=== PATIENT | male | born 1960 | race Caucasian/White ===

== ENCOUNTER 2019-11-21 13:37 | Outpatient (CLI) | payer BC ==
--- NOTE | 2019-11-21 15:47 | MRI ---
LEFT SHOULDER MRI WITHOUT IV CONTRAST: HISTORY: Chronic pain left shoulder without acute injury. FINDINGS: Multiplanar, multisequence MRI examination of the shoulder is performed. There are very severe gleno humeral joint arthropathy changes with marked flattening of the glenoid as well as severe deformity a nd flattening of the humeral head with extensive hypertrophic osteophytosis. There is evidence for a bnormal joint effusion with numerous intraarticular bodies as well as a focal area of intraarticular mass approximately 1.9 cm in size which is partially fatty, evidence for a small focal area of lipo ma arborescence. There is fairly marked muscle volume loss of the supraspinatus and moderate muscle volume loss of the infraspinatus muscles. There is some thinning of the supraspinatus and infraspina tus tendons at the level of the magic angle. There appears to be a concealed interstitial tear of th e supraspinatus tendon at the insertion. The infraspinatus tendon demonstrates fairly extensive foca l tendinopathy and some undersurface interstitial tearing but without evidence for complete full-thic kness or retracted tear. Marked thickening and altered signal of the subscapularis tendon, evidence for extensive tendinopathy and probable associated interstitial tearing. Evidence for biceps tendino basilia. AC joint arthrosis with minimal fluid and fat stranding in the subacromial subdeltoid bursa w ith mild downsloping of the anterior acromion. No acute abnormal marrow signal. IMPRESSION: Very severe glenohumeral joint arthropathy changes with extensive flattening and deformity of the hum eral head and glenoid with extensive hypertrophic osteophytosis as well as fairly extensive intraarti cular debris including small bodies and evidence for a focal area of lipoma arborescence. No evidenc e for a complete full-thickness or retracted tendon tear. Evidence for tendinopathy. Partial thickn ess interstitial tearing including the supraspinatus and infraspinatus tendons as well as the subscap ularis tendon. Moderate to severe muscle volume loss of the supraspinatus muscle and moderate muscle volume loss of the infraspinatus muscle. POS: RRE
== END 2019-11-21 13:38 | disposition home or self-care (01) ==
LOC: MRI 13:37
PROVIDERS: ATTEND Orthopaedic Surgery Sports Medicine
DX: G56.00 Carpal tunnel syndrome, unspecified upper limb (principal); M17.12 Unilateral primary osteoarthritis, left knee

== ENCOUNTER 2021-03-17 16:21 | Outpatient (CLI) | payer BC | END 2021-03-17 16:22 | disposition home or self-care (01) | LOC: LABBT 16:21 | PROVIDERS: ATTEND Internal Medicine Cardiovascular Disease | DX: Z01.812 Encounter for preprocedural laboratory examination (principal); Q24.9 Congenital malformation of heart, unspecified; Z20.822 Contact with and (suspected) exposure to COVID-19 | CPT/HCPCS: 80053; 85025; U0003; U0005 ==

== ENCOUNTER 2021-03-22 06:06 | Inpatient (IN) | payer BC ==
[2021-03-19 11:46] VITALS: BMI 37.8
[2021-03-22] MEDS ORDERED: Heparin 10,000 UNITS/ 10 ML VIAL ONE (06:33)
[2021-03-22] MEDS ORDERED: Lidocaine 1% (PF) 30 ML VIAL ONE (06:34)
[2021-03-22] MEDS ORDERED: Fentanyl 100 MCG/2 ML VIAL ONE (07:11)
[2021-03-22] MEDS ORDERED: Midazolam HCl 2 mg/2 ml Vial ONE (07:11)
[2021-03-22] MEDS ORDERED: Heparin 25,000 units/D5W 500 ML ONE (07:46)
[2021-03-22] MEDS ORDERED: Nitroglycerin 0.4 MG TAB (25 Tab Bottle) SL PRN (08:04)
[2021-03-22] MEDS ORDERED: Sodium Chloride 0.9% 200 ML IV PRN (08:04)
[2021-03-22] MEDS ORDERED: Acetaminophen/Codeine 30-300mg Tablet PO PRN ×2 (08:04)
[2021-03-22] MEDS ORDERED: Heparin 10,000 UNITS/ 10 ML VIAL SLOW IVP SCH (08:15)
[2021-03-22] MEDS ORDERED: Heparin 10,000 UNITS/1 ML VIAL SLOW IVP SCH (08:15)
[2021-03-22] MEDS ORDERED: Sodium Chloride 0.9% 1,000 ML IV SCH (08:15)
[2021-03-22] MEDS ORDERED: Nitroglycerin 2% Ointment 1 INCH/1 GM Packet ONE (08:23)
[2021-03-22] MEDS ORDERED: Iopamidol 370 76% 50 ML VIAL FS ONE (08:50)
[2021-03-22] MEDS ORDERED: Iopamidol 370 76% 100 ML VIAL ONE (08:50)
[2021-03-22] MEDS ORDERED: Nitroglycerin 2% Ointment 1 INCH/1 GM Packet TOP SCH (09:00)
[2021-03-22] MEDS ORDERED: Albumin 5% 500 ML ONE (11:34)
[2021-03-22] MEDS ORDERED: Heparin 10,000 UNITS/1 ML VIAL 30,000 UNITS in Sodium Chloride 0.9% 1,000 ML FS SCH (11:45)
[2021-03-22] MEDS ORDERED: Heparin 25,000 units/D5W 500 ML IV SCH (12:00)
[2021-03-22] MEDS ORDERED: Fentanyl 250 MCG/5 ML VIAL ONE (12:02)
[2021-03-22] MEDS ORDERED: Midazolam HCl 5 mg/5 ml Vial ONE (12:02)
[2021-03-22] MEDS ORDERED: Dexmedetomidine 200 MCG/2 ML VIAL ONE (12:03)
[2021-03-22] MEDS ORDERED: Sodium Chloride 0.9% 20 ML ONE (12:49)
[2021-03-22] MEDS ORDERED: Succinylcholine 200 MG/10 ml SYRINGE FS ONE (13:21)
[2021-03-22] MEDS ORDERED: Potassium Chloride 60 MEQ/30 ML VIAL ONE (13:21)
[2021-03-22] MEDS ORDERED: Magnesium Sulfate 1 GM/2 ML VIAL ONE (13:21)
[2021-03-22] MEDS ORDERED: Papaverine 60 MG/2 ML VIAL ONE (13:21)
[2021-03-22] MEDS ORDERED: PROPOFOL 200 MG/20 ML VIAL ONE (13:21)
[2021-03-22] MEDS ORDERED: Lidocaine 2% PF 100 mg/5 ml Syringe ONE (13:21)
[2021-03-22] MEDS ORDERED: Calcium Chloride 1 GM/10 ML Abboject SYRINGE ONE (13:21)
[2021-03-22] MEDS ORDERED: Sodium Bicarb 50 MEQ/50 ML Abboject 8.4% SYRINGE ONE (13:21)
[2021-03-22] MEDS ORDERED: Heparin 30,000 units/30 ml VIAL ONE (13:21)
[2021-03-22] MEDS ORDERED: Protamine Sulfate 250 MG/25 ML VIAL ONE (13:21)
[2021-03-22] MEDS ORDERED: Norepinephrine 4 MG/4 ML VIAL ONE (13:21)
[2021-03-22] MEDS ORDERED: Cardioplegic Soln 1,000 ML BAG ONE (13:21)
[2021-03-22] MEDS ORDERED: Aminocaproic Acid 5 GM/20 ML VIAL ONE (13:21)
[2021-03-22] MEDS ORDERED: Nitroglycerin 50 MG/250 ML BOT ONE (13:21)
[2021-03-22] MEDS ORDERED: Vecuronium 10 MG VIAL ONE (13:21)
[2021-03-22] MEDS ORDERED: Glycopyrrolate 0.2 MG/ML 5 ML SYRINGE ONE (13:21)
[2021-03-22] MEDS ORDERED: Heparin 5,000 UNITS/ML VIAL ONE (13:21)
[2021-03-22] MEDS ORDERED: Mannitol 12.5 GM/50 ML ONE (13:21)
[2021-03-22] MEDS ORDERED: Ondansetron PF 4 MG/2 ML Vial ONE (13:21)
[2021-03-22] MEDS ORDERED: Lidocaine 1% PF 5 ML VIAL ONE (13:21)
[2021-03-22] MEDS ORDERED: Thrombin 5000 UNITS/5 ML VIAL ONE (13:21)
[2021-03-22] MEDS ORDERED: Post-Op Insulin Drip Protocol IVPB ONE (17:59)
[2021-03-22] MEDS ORDERED: Norepinephrine 8 MG/0.9% NS 250 ML IVPB PRN (17:59)
[2021-03-22] MEDS ORDERED: Fentanyl 100 MCG/2 ML VIAL SLOW IVP PRN (17:59)
[2021-03-22] MEDS ORDERED: hydrALAZINE 20 MG/ML VIAL SLOW IVP PRN (17:59)
[2021-03-22] MEDS ORDERED: Morphine 2 MG/ML VIAL SLOW IVP PRN (17:59)
[2021-03-22] MEDS ORDERED: HYDROcodone/Acetaminophen 5/325 mg Tablet PO PRN (17:59)
[2021-03-22] MEDS ORDERED: Mag-Al 1200 mg/1200 mg/30 ML UDCUP PO PRN (17:59)
[2021-03-22] MEDS ORDERED: DOPamine 400 MG/D5W 250 ML 250 ML IVPB PRN (17:59)
[2021-03-22] MEDS ORDERED: Bisacodyl 10 MG SUPP PR PRN (17:59)
[2021-03-22] MEDS ORDERED: Promethazine HCl 25 MG/ML VIAL IM PRN (17:59)
[2021-03-22] MEDS ORDERED: Acetaminophen 325 MG TAB PO PRN (17:59)
[2021-03-22] MEDS ORDERED: niCARdipine 25 MG in Sodium Chloride 0.9% 250 ML 240 ML IVPB PRN (17:59)
[2021-03-22] MEDS ORDERED: Bisacodyl 5 MG TAB PO PRN (17:59)
[2021-03-22] MEDS ORDERED: Potassium Chloride 20 MEQ/100 ML PREMIX BAG IVPB PRN (17:59)
[2021-03-22] MEDS ORDERED: Ondansetron PF 4 MG/2 ML Vial IVP PRN (17:59)
[2021-03-22] MEDS ORDERED: Nitroglycerin 50 MG/250 ML BOT 250 ML IVPB PRN (17:59)
[2021-03-22] MEDS ORDERED: Guaifenesin DM 100-10/5 ML UDCUP PO PRN (17:59)
[2021-03-22] MEDS ORDERED: Hetastarch 6% 500 ML 500 ML IVPB PRN (17:59)
[2021-03-22 18:08] LABS: #Basophils 0.1 thou/uL (0.0-0.2); #Eosinphils 0.2 thou/uL (0.0-0.7); #Lymphocytes 1.7 thou/uL (1.20-3.40); #Monocytes 1.4 thou/uL (0.11-0.59); #Neutrophils 15.3 thou/uL (1.40-6.50); %Basophils 0.5 % (0.0-1.0); %Eosinophils 0.8 % (0.0-10.0); %Lymphocytes 9.1 % (21.0-51.0); %Monocytes 7.7 % (0.0-10.0); Hemoglobin 12.4 g/dL (14.0-18.0); Mean Corpuscular HGB CONC 34.8 g/dL (32.0-36.0); Mean Corpuscular Volume 97.6 fL (78.0-98.0); Platelet Count 232 thou/uL (130-400); RBC Distribution Width 11.2 % (11.5-14.5); Red Blood Cell (RBC) Count 3.64 mill/uL (4.70-6.10); White Blood Cell (WBC) Count 18.7 thou/uL (4.8-10.8)
[2021-03-22 18:20] LABS: INR-International Normal Ratio 1.3; Prothrombin Time 15.7 sec (12.0-14.7)
[2021-03-22 18:21] LABS: PTT 29.3 sec (22.9-36.1)
[2021-03-22] MEDS: Fentanyl 100 MCG/2 ML VIAL SLOW IVP PRN ×2 (18:35→20:45)
[2021-03-22 18:38] LABS: Anion Gap 13 mmol/L (10-20); BUN (Urea Nitrogen) 15 mg/dL (8.4-25.7); Calc. Creatinine Clearance 146 mL/min (70-130); Calcium 8.6 mg/dL (7.8-10.44); Carbon Dioxide 22 mmol/L (23-31); Chloride 104 mmol/L (98-107); Glucose 144 mg/dL (80-115); Potassium 4.7 mmol/L (3.5-5.1); Sodium 134 mmol/L (136-145)
[2021-03-22] MEDS ORDERED: Lantus 1000 UNITS/10 ML VIAL SC PRN (19:15)
[2021-03-22] MEDS ORDERED: Insulin Regular 300 UNITS/3 ML VIAL SC PRN (19:15)
[2021-03-22] MEDS ORDERED: Dextrose 5% in Water 1,000 ML IV PRN (19:15)
[2021-03-22] MEDS ORDERED: Dextrose 50% Abboject 50 ML SYRINGE SLOW IVP PRN (19:15)
[2021-03-22] MEDS ORDERED: HUMULIN R 100 UNITS in Sodium Chloride 0.9% 100 ML IVPB SCH (19:15)
[2021-03-22] MEDS: Ketorolac Tromethamine 30 MG/ML VIAL IVP SCH ×2 (19:51→23:19)
[2021-03-22] MEDS: Famotidine/PF 20 mg/2ml Vial SLOW IVP SCH (19:52)
[2021-03-22] MEDS: CEFAZOLIN 2 GM in Premix Bag 1 BAG IVPB SCH (19:52)
[2021-03-22] MEDS: Lactated Ringer's 1,000 ML IV SCH (20:33)
[2021-03-22] MEDS: HYDROcodone/Acetaminophen 5/325 mg Tablet PO PRN (20:45)
[2021-03-22] MEDS ORDERED: Atorvastatin Calcium 20 MG TAB PO SCH (21:00)
[2021-03-22 22:22] LABS: Hemoglobin 12.6 g/dL (14.0-18.0)
[2021-03-22 22:35] LABS: Potassium 4.5 mmol/L (3.5-5.1)
[2021-03-23] MEDS: HYDROcodone/Acetaminophen 5/325 mg Tablet PO PRN ×5 (01:04→20:39)
[2021-03-23] MEDS: Fentanyl 100 MCG/2 ML VIAL SLOW IVP PRN ×2 (01:05→04:57)
[2021-03-23] MEDS: CEFAZOLIN 2 GM in Premix Bag 1 BAG IVPB SCH ×2 (01:33→07:57)
[2021-03-23] MEDS: Lactated Ringer's 1,000 ML IV SCH (03:51)
[2021-03-23 04:39] LABS: #Lymphocytes 0.8 thou/uL (1.20-3.40); #Neutrophils 9.4 thou/uL (1.40-6.50); %Basophils 0.2 % (0.0-1.0); %Eosinophils 0.2 % (0.0-10.0); %Lymphocytes 6.8 % (21.0-51.0); %Neutrophils 83.8 % (42.0-75.0); Hemoglobin 11.2 g/dL (14.0-18.0); Mean Corpuscular HGB CONC 35.7 g/dL (32.0-36.0); Mean Corpuscular Hemoglobin 35.2 pg (27.0-31.0); Mean Corpuscular Volume 98.5 fL (78.0-98.0); Mean Platelet Volume 7.2 fL (7.4-10.4); Platelet Count 183 thou/uL (130-400); RBC Distribution Width 11.1 % (11.5-14.5); Red Blood Cell (RBC) Count 3.18 mill/uL (4.70-6.10); White Blood Cell (WBC) Count 11.2 thou/uL (4.8-10.8)
[2021-03-23 04:57] LABS: Anion Gap 13 mmol/L (10-20); BUN (Urea Nitrogen) 16 mg/dL (8.4-25.7); Calc. Creatinine Clearance 126 mL/min (70-130); Calcium 8.2 mg/dL (7.8-10.44); Carbon Dioxide 23 mmol/L (23-31); Chloride 101 mmol/L (98-107); Glucose 120 mg/dL (80-115); Potassium 4.3 mmol/L (3.5-5.1); Sodium 133 mmol/L (136-145)
[2021-03-23] MEDS: Ketorolac Tromethamine 30 MG/ML VIAL IVP SCH ×3 (05:49→17:47)
[2021-03-23] MEDS: Polyethylene Glycol 3350 17 GM Packet PO SCH (07:55)
[2021-03-23] MEDS: Famotidine/PF 20 mg/2ml Vial SLOW IVP SCH (07:56)
[2021-03-23] MEDS: Aspirin 325 MG TAB PO SCH (07:56)
[2021-03-23] MEDS ORDERED: Hydrochlorothiazide 25 MG TAB PO SCH (09:00)
[2021-03-23] MEDS ORDERED: Lisinopril 20 MG TAB PO SCH (09:00)
[2021-03-23] MEDS ORDERED: Zolpidem Tartrate 5 MG TAB PO PRN (12:16)
[2021-03-23] MEDS ORDERED: diphenhydrAMINE 25 MG CAP PO PRN (12:16)
[2021-03-23] MEDS ORDERED: Mineral Oil ENEMA PR PRN (12:16)
[2021-03-23] MEDS ORDERED: Nitroglycerin 0.4 MG TAB (25 Tab Bottle) SL PRN (12:16)
[2021-03-23] MEDS: guaiFENesin ER 600 MG TAB PO SCH (20:37)
[2021-03-23] MEDS: Famotidine 20 MG TAB PO SCH (20:38)
[2021-03-23] MEDS: Atorvastatin Calcium 40 MG TAB PO SCH (20:38)
[2021-03-23] MEDS: Enoxaparin Sodium 40 MG/0.4 ML SYRINGE SC SCH (20:38)
[2021-03-23] MEDS ORDERED: Atorvastatin Calcium 40 MG TAB PO SCH (21:00)
[2021-03-24] MEDS: Ketorolac Tromethamine 30 MG/ML VIAL IVP SCH ×4 (00:34→17:52)
[2021-03-24] MEDS: Famotidine 20 MG TAB PO SCH ×2 (09:08→21:08)
[2021-03-24] MEDS: Potassium Chloride 10 MEQ TAB PO SCH (09:08)
[2021-03-24] MEDS: Aspirin 325 MG TAB PO SCH (09:08)
[2021-03-24] MEDS: guaiFENesin ER 600 MG TAB PO SCH ×2 (09:08→21:08)
[2021-03-24] MEDS: Furosemide 40 MG TAB PO SCH (09:08)
[2021-03-24] MEDS: Polyethylene Glycol 3350 17 GM Packet PO SCH (09:09)
[2021-03-24] MEDS: Carvedilol 3.125 MG TAB PO SCH (17:53)
[2021-03-24] MEDS: Enoxaparin Sodium 40 MG/0.4 ML SYRINGE SC SCH (21:07)
[2021-03-24] MEDS: Atorvastatin Calcium 40 MG TAB PO SCH (21:08)
[2021-03-24] MEDS: HYDROcodone/Acetaminophen 5/325 mg Tablet PO PRN (21:08)
[2021-03-25] MEDS: Ketorolac Tromethamine 30 MG/ML VIAL IVP SCH ×2 (01:13→05:22)
[2021-03-25] MEDS: Furosemide 40 MG TAB PO SCH (09:18)
[2021-03-25] MEDS: Famotidine 20 MG TAB PO SCH ×2 (09:18→20:53)
[2021-03-25] MEDS: Carvedilol 3.125 MG TAB PO SCH ×2 (09:18→16:40)
[2021-03-25] MEDS: Potassium Chloride 10 MEQ TAB PO SCH (09:18)
[2021-03-25] MEDS: guaiFENesin ER 600 MG TAB PO SCH ×2 (09:18→20:53)
[2021-03-25] MEDS: Polyethylene Glycol 3350 17 GM Packet PO SCH (09:19)
[2021-03-25] MEDS: Aspirin 325 MG TAB PO SCH (11:56)
[2021-03-25] MEDS ORDERED: Lisinopril 10 MG TAB PO SCH (16:15)
[2021-03-25] MEDS: Enoxaparin Sodium 40 MG/0.4 ML SYRINGE SC SCH (20:53)
[2021-03-25] MEDS: Atorvastatin Calcium 40 MG TAB PO SCH (20:53)
[2021-03-26] MEDS ORDERED: Lisinopril 10 MG TAB PO SCH ×2 (09:00)
[2021-03-26] MEDS ORDERED: Lisinopril 20 MG TAB PO SCH (09:00)
[2021-03-26] MEDS: Potassium Chloride 10 MEQ TAB PO SCH (09:54)
[2021-03-26] MEDS: Carvedilol 3.125 MG TAB PO SCH (09:54)
[2021-03-26] MEDS: Aspirin 325 MG TAB PO SCH (09:54)
[2021-03-26] MEDS: Furosemide 40 MG TAB PO SCH (09:55)
[2021-03-26] MEDS: HYDROcodone/Acetaminophen 5/325 mg Tablet PO PRN ×2 (09:55→20:14)
[2021-03-26] MEDS: Famotidine 20 MG TAB PO SCH ×2 (09:56→20:10)
[2021-03-26] MEDS: Polyethylene Glycol 3350 17 GM Packet PO SCH (09:56)
[2021-03-26] MEDS: guaiFENesin ER 600 MG TAB PO SCH ×2 (10:08→20:11)
[2021-03-26] MEDS ORDERED: Carvedilol 3.125 MG TAB PO SCH (12:45)
[2021-03-26] MEDS ORDERED: Carvedilol 6.25 MG TAB PO SCH (17:00)
[2021-03-26] MEDS: Atorvastatin Calcium 40 MG TAB PO SCH (20:10)
[2021-03-26] MEDS: Enoxaparin Sodium 40 MG/0.4 ML SYRINGE SC SCH (20:11)
[2021-03-27 05:40] VITALS: BP 164/77; TEMP 98.9
[2021-03-27] MEDS: HYDROcodone/Acetaminophen 5/325 mg Tablet PO PRN (05:42)
== END 2021-03-27 06:55 | disposition home or self-care (01) | DRG 234 ==
LOC: SDC 06:06 → CCU 08:04 → 2NO 03-23 13:51
PROVIDERS: ADMIT Internal Medicine Cardiovascular Disease; ATTEND Internal Medicine Cardiovascular Disease
PROC: 4A023N7 Measurement of Cardiac Sampling and Pressure, Left Heart, Percutaneous Approach (ICD-10-PCS; principal; 2021-03-22)
PROC: 02100Z9 Bypass Coronary Artery, One Artery from Left Internal Mammary, Open Approach (ICD-10-PCS; 2021-03-22)
PROC: 0211093 Bypass Coronary Artery, Two Arteries from Coronary Artery with Autologous Venous Tissue, Open Approach (ICD-10-PCS; 2021-03-22)
PROC: 06BP4ZZ Excision of Right Saphenous Vein, Percutaneous Endoscopic Approach (ICD-10-PCS; 2021-03-22)
PROC: 04HL33Z Insertion of Infusion Device into Left Femoral Artery, Percutaneous Approach (ICD-10-PCS; 2021-03-22)
PROC: B2111ZZ Fluoroscopy of Multiple Coronary Arteries using Low Osmolar Contrast (ICD-10-PCS; 2021-03-22)
PROC: B2151ZZ Fluoroscopy of Left Heart using Low Osmolar Contrast (ICD-10-PCS; 2021-03-22)
PROC: 5A1221Z Performance of Cardiac Output, Continuous (ICD-10-PCS; 2021-03-22)
DX: I25.10 Atherosclerotic heart disease of native coronary artery without angina pectoris (principal); R94.39 Abnormal result of other cardiovascular function study; Z20.822 Contact with and (suspected) exposure to COVID-19; I10 Essential (primary) hypertension; E78.00 Pure hypercholesterolemia, unspecified; Z87.891 Personal history of nicotine dependence; Z79.899 Other long term (current) drug therapy; Z79.82 Long term (current) use of aspirin
CPT/HCPCS: 36415; 36416; 36430; 71045; 80048; 82947; 85025; 85347; 85610; 85730; 86850; 86900; 86901; 93005; 93010; 93458; 93798; 94660; 99152; 99153; J0690; J1644; J1650; J1885; J2001; J2150; J2250; J2405; J2440; J2704; J2720; J3010; J3370; J3475; J3480; P9045; Q9967; S0017; S0028

== ENCOUNTER 2022-08-04 12:38 | Outpatient (CLI) | payer BC ==
[2022-08-04 13:59] LABS: Hemoglobin 12.2 g/dL (13.5-17.5); Mean Corpuscular HGB CONC 34.7 g/dL (32.0-36.0); Mean Corpuscular Hemoglobin 33.3 pg (27.0-33.0); Mean Corpuscular Volume 96.2 fl (81.2-95.1); Mean Platelet Volume 9.5 fl (7.4-10.4); Platelet Count 272 10x3/uL (150-450); Red Blood Cell (RBC) Count 3.66 10x6/uL (4.32-5.72); White Blood Cell (WBC) Count 7.1 10x3/uL (3.5-10.5)
[2022-08-04 14:29] LABS: Anion Gap 17 mmol/L (10-20); BUN (Urea Nitrogen) 25 mg/dL (8.4-25.7); Calc. Creatinine Clearance 0 mL/min (70-130); Calcium 9.6 mg/dL (7.8-10.44); Carbon Dioxide 25 mmol/L (23-31); Chloride 100 mmol/L (98-107); Estimated GFR 71; Glucose 105 mg/dL (80-115); Potassium 4.8 mmol/L (3.5-5.1); Sodium 137 mmol/L (136-145)
== END 2022-08-04 12:39 | disposition home or self-care (01) ==
LOC: LABBT 12:38
PROVIDERS: ATTEND Thoracic Surgery (Cardiothoracic Vascular Surgery)
DX: Z01.818 Encounter for other preprocedural examination (principal); T82.847A Pain due to cardiac prosthetic devices, implants and grafts, initial encounter
CPT/HCPCS: 80048; 85027; 93005; 93010

== ENCOUNTER 2022-08-08 06:04 | Day surgery (SDC) | payer BC ==
[2022-08-05 09:30] VITALS: BMI 36.6
[2022-08-08] MEDS ORDERED: fentaNYL PF 100 MCG/2 ML SYRINGE ONE (06:16)
[2022-08-08] MEDS ORDERED: Midazolam HCl 2 mg/2 ml Vial ONE (06:16)
[2022-08-08] MEDS ORDERED: Norepinephrine 4 MG/4 ML VIAL ONE (06:17)
[2022-08-08] MEDS ORDERED: niCARdipine 25 MG/10 ML VIAL ONE (06:17)
[2022-08-08] MEDS ORDERED: SUGAMMADEX SODIUM 200 MG/2 ML VIAL ONE (06:17)
[2022-08-08] MEDS ORDERED: Lidocaine 2% 6 ML SYR ONE (07:10)
[2022-08-08] MEDS ORDERED: CEFAZOLIN 2 GM VIAL ONE (07:19)
[2022-08-08] MEDS ORDERED: Sodium Chloride 0.9% 100 ML ONE (07:19)
[2022-08-08] MEDS ORDERED: Ondansetron PF 4 MG/2 ML Vial ONE (07:33)
[2022-08-08] MEDS ORDERED: Dexamethasone 20 MG/5 ML VIAL ONE (07:33)
[2022-08-08] MEDS ORDERED: PROPOFOL 200 MG/20 ML VIAL ONE (07:33)
[2022-08-08] MEDS ORDERED: Bupivacaine HCl 0.5%/Epinephrine 1:200,000/PF 30 ml Vial ONE (07:41)
== END 2022-08-08 09:15 | disposition home or self-care (01) ==
LOC: SDC 06:04
PROVIDERS: ATTEND Thoracic Surgery (Cardiothoracic Vascular Surgery)
PROC: 0PP004Z Removal of Internal Fixation Device from Sternum, Open Approach (ICD-10-PCS; principal; 2022-08-08)
DX: T84.84XA Pain due to internal orthopedic prosthetic devices, implants and grafts, initial encounter (principal); Z79.620 Long term (current) use of immunosuppressive biologic; Z79.82 Long term (current) use of aspirin; Z79.899 Other long term (current) drug therapy; Z95.1 Presence of aortocoronary bypass graft; Y81.3 Surgical instruments, materials and general- and plastic-surgery devices (including sutures) associated with adverse incidents
CPT/HCPCS: J1100; J2250; J2405; J2704; J3490